=== PATIENT | female | born 1970 | race Caucasian/White ===

== ENCOUNTER → 2017-02-03 | Outpatient (CLI) | payer BC ==
[~2017-02-03] MED LIST: EFF75 PO; GABA-113 PO; PANT1TAB48 PO; PANT40TA PO; RXC5 PO
--- NOTE | 2017-02-03 15:05 | DIAGNOSTIC IMAGING REPORT ---
MRI CERVICAL WITHOUT CONTRAST CLINICAL HISTORY: CERVICAL RADICULITIS TECHNIQUE: Sagittal and axial T1, T2 and STIR images were obtained. COMPARISON STUDY: No previous studies for comparison. There are no suspicious areas of marrow replacement. No intrinsic cervical cord lesions are visualized. C2-3: There is no evidence of disc bulge or focal herniation. There is no spinal or foraminal stenosis. C3-4: There is no evidence of disc bulge or focal herniation. There is no spinal or foraminal stenosis. C4-5: There are no disc bulges or focal herniations. There is no spinal or foraminal stenosis. C5-6 :There is a circumferential disc bulge present. There is posterior lateral osteophytic spurring. There is mild spinal canal narrowing. There is no significant foraminal narrowing. C6-7: There is a circumferential disc bulge present. There is no significant spinal canal narrowing. There is minor left-sided foraminal narrowing C7-T1: There is no evidence of disc bulge or focal herniation. There is no evidence of spinal or foraminal stenosis. There are bilateral perineural cysts. There is a 24 mm left lobe thyroid nodule. IMPRESSION: 1. No intrinsic cord lesions identified 2. Disc bulge at the C5-6 and C6-7 levels. Mild spinal canal narrowing at the C5-6 level. 3. 24 mm left lobe thyroid nodule. Dedicated thyroid ultrasound is recommended in follow-up Electronically signed by: Itz Pedraza M.D. 02/03/2017 3:03 PM Dictated Date/Time: 02/03/2017 2:59 PM
== END | disposition home or self-care (01) ==
LOC: C.MRIBC 13:43
PROVIDERS: ATTEND Pain Medicine Interventional Pain Medicine
DX: M54.12 Radiculopathy, cervical region (principal)

== ENCOUNTER 2017-04-03 06:01 | Inpatient (IN) | payer BC ==
[2017-03-19 11:27] VITALS: BMI 28.0
[2017-03-23 17:19] LABS: BASO % 0.2 %; BASO ABS # 0.02 K/uL (0-0.2); COMPLETE YES; EOS % 0.8 %; IG% 0.3 %; LYMPH % 28.1 %; LYMPH ABS # 2.68 K/uL (1.2-3.4); MEAN CELL VOLUME 88.8 fL (80-100); MEAN CORPUSCULAR HEMOGLOBIN 29.2 pg (25-34); MEAN CORPUSCULAR HGB CONC 32.8 g/dl (32-36); MEAN PLATELET VOLUME 10.7 fL (7.4-10.4); MONO % 10.6 %; PLATELET COUNT 291 K/uL (130-400); RED BLOOD COUNT 4.39 M/uL (4.2-5.4); WHITE BLOOD COUNT 9.54 K/uL (4.8-10.8)
--- NOTE | 2017-03-23 17:23 | DIAGNOSTIC IMAGING REPORT ---
TWO VIEW CHEST CLINICAL HISTORY: Preoperative examination. FINDINGS: PA and lateral chest radiographs are compared to study dated 01/26/2016. The cardiomediastinal silhouette is unremarkable. The lungs and pleural spaces are clear. There is no pneumothorax. The bony thorax appears intact. IMPRESSION: No active disease in the chest. Electronically signed by: Keith Hu M.D. 03/23/2017 5:22 PM Dictated Date/Time: 03/23/2017 5:21 PM
[2017-03-23 17:44] LABS: BUN/CREATININE RATIO 25.1 (10-20); CALCIUM 9.1 mg/dl (8.5-10.1); CREATININE 0.74 mg/dl (0.60-1.20); POTASSIUM 3.8 mmol/L (3.5-5.1)
[2017-03-23 19:18] LABS: URINE APPEARANCE CLEAR (CLEAR); URINE BILIRUBIN NEG (NEG); URINE COLOR YELLOW; URINE EPITHELIAL CELL AUTO >30 /lpf (0-5); URINE NITRITE NEG (NEG); URINE SPECIFIC GRAVITY 1.013 (1.000-1.030); UROBILINOGEN NEG (NEG)
[2017-03-23 19:20] LABS: MANUAL MICROSCOPIC REQUIRED? NO; REVIEW REQ? NO
[2017-04-03] VITALS (16 sets, daily range): BP systolic 109–132; BP diastolic 74–91; PULSE 67–102; TEMP 36.4–36.9; O2SAT 94–98; Ht 170.2 cm; Wt 82.7 kg
[~2017-04-03] VITALS: Ht 170.2 cm; Wt 82.7 kg
[~2017-04-03 06:01] MED LIST changes: +CEFAZOLIN 2000 MG/60 ML D5W IV SCH; -EFF75 PO; +LACTATED RINGER'S 1000ML 1,000 ML IV SCH; -PANT40TA PO; -RXC5 PO
[2017-04-03] MEDS ORDERED: MIDAZOLAM HCL 1 MG/ML 2ML VIAL ONE (06:38)
[2017-04-03] MEDS ORDERED: FENTANYL CITRATE INJ 50 MCG/1 ML 2 ML VIAL ONE ×3 (06:38→08:45)
[2017-04-03] MEDS ORDERED: SODIUM CHLORIDE 0.9% PF 50 ML VIAL ONE (06:56)
[2017-04-03] MEDS ORDERED: BACITRACIN 50000 UNIT VIAL ONE (06:56)
--- NOTE | 2017-04-03 07:15 | History & Physical Bridge Note ---
H&P Re-Evaluation Bridge Note: I have examined the patient, reviewed the History & Physical and in the interval since the performance of the History & Physical I have noted the following changes of clinical significance: No changes noted
--- NOTE | 2017-04-03 07:15 | History and Physical ---
History & Physical Date April 03, 2017. Chief Complaint neck and arm pain History of Present Illness The patient is a 47 year old female with complaints of Past Medical/Surgical History Medical Problems: (1) Chest pain Surgical Problems: (1) History of hysterectomy Additional History Hepatic Disease: No Endocrine Disorder: No Kidney Disease: No Hypertension: No Heart Disease: No Bleeding Tendencies: No Infectious Diseases: No Allergies Coded Allergies: Sulfa Antibiotics (Verified Allergy, Severe, anaphylaxis, 04/03/17) Home Medications Scheduled Gabapentin (Neurontin), 300 MG PO UD Gabapentin (Neurontin), 2 TAB PO HS Pantoprazole (Protonix), 40 MG PO HS Physical Examination Skin: warm/dry, no rash Eyes: normal inspection, EOMI, sclerae normal ENT: normal ENT inspection, pharynx normal Head: normocephalic, atraumatic Neck: supple, no adenopathy, trachea midline Respiratory/Chest: lungs clear, normal breath sounds, no respiratory distress Cardiovascular: regular rate, rhythm, no edema, no murmur Abdomen / GI: normal bowel sounds, non tender Back: normal inspection Extremities: normal inspection, normal range of motion Neurologic/Psych: no motor/sensory deficits, alert, normal reflexes, oriented x 3 Diagnosis cervical stenosis Plan of Treatment acdf C5-6 C6-7
[2017-04-03] MEDS ORDERED: HYDROmorphone INJ 2 MG/ML SYR/VIAL ONE ×2 (07:56→09:12)
[2017-04-03] MEDS ORDERED: PROPOFOL IV EMULSION 10 MG/ML 20 ML VIAL IV ONE (08:16)
[2017-04-03] MEDS ORDERED: LIDOCAINE HCL 2% 2 ML VIAL (20MG/ML) ONE (08:16)
[2017-04-03] MEDS ORDERED: ROCURONIUM BROMIDE 10 MG/ML 5 ML VIAL ONE (08:16)
[2017-04-03] MEDS ORDERED: ONDANSETRON INJ 2 MG/ML 2 ML VIAL ONE ×2 (08:16→09:16)
[2017-04-03] MEDS ORDERED: DEXAMETHASONE SOD INJ 4 MG/ML VIAL ONE (08:16)
[2017-04-03] MEDS ORDERED: ATROPINE SULFATE 0.1 MG/ML 5ML SYR IV PRN (08:45)
[2017-04-03] MEDS ORDERED: PROMETHAZINE HCL INJ 12.5 MG in SODIUM CHLORIDE 0.9% 50ML 50 ML IV PRN (08:45)
[2017-04-03] MEDS ORDERED: LABETALOL HCL IV 5 MG/ML 20ML IV PRN (08:45)
[2017-04-03] MEDS ORDERED: ONDANSETRON INJ 2 MG/ML 2 ML VIAL IV PRN ×2 (08:45→09:15)
[2017-04-03] MEDS ORDERED: HYDROmorphone INJ 2 MG/ML SYR/VIAL IV PRN (08:45)
[2017-04-03] MEDS ORDERED: FLOSEAL HEMOSTATIC MATRIX 5ML TOP ONE (09:02)
--- NOTE | 2017-04-03 09:13 | [facility] Operative Report ---
Operative Report Operative Date April 03, 2017. Pre-Operative Diagnosis Cervical spinal stenosis Procedure(s) Performed acdf Surgeon DR. Rodrigo Farley Hot Top Liner Surgeon(s) Cuate Maria PA-C Estimated Blood Loss 20ml Findings stenosis Specimens none I attest to the content of the Intraoperative Record and any orders documented therein. Any exceptions are noted below.
[2017-04-03] MEDS ORDERED: LORAZEPAM 0.5 MG TAB PO PRN (09:15)
[2017-04-03] MEDS ORDERED: MAGNESIUM HYDROXIDE SUSP 30 ML UDC PO PRN (09:15)
[2017-04-03] MEDS ORDERED: RACEPINEPHRINE 2.25% NEBU SOLN 0.5 ML VIAL INH PRN (09:15)
[2017-04-03] MEDS ORDERED: NALOXONE HCL 0.4 MG/1 ML VIAL/CARP IV PRN (09:15)
[2017-04-03] MEDS ORDERED: LORAZEPAM INJ 0.5 MG in SYRINGE 0.75 ML IV PRN (09:15)
[2017-04-03] MEDS ORDERED: DEXAMETHASONE INJ 8 MG in SYRINGE 0 ML IV PRN (09:15)
[2017-04-03] MEDS ORDERED: DO NOT ADMINISTER FLU VACCINE PRN ×3 (09:15)
[2017-04-03] MEDS ORDERED: DiphenhydrAMINE HCL 50 MG/ML VIAL IV PRN (09:15)
[2017-04-03] MEDS ORDERED: DO NOT ADMINISTER PNEUMOCOCCAL VACCINE PRN ×2 (09:15)
[2017-04-03] MEDS ORDERED: ACETAMINOPHEN IV 1,000 MG in EMPTY BAG 0 ML IV PRN (09:15)
[2017-04-03] MEDS ORDERED: GLYCOPYRROLATE INJ 0.2 MG/ML VIAL ONE (09:16)
[2017-04-03] MEDS ORDERED: NEOSTIGMINE METHYLSULFATE 1 MG/ML 10ML VIAL ONE (09:16)
[2017-04-03] MEDS ORDERED: ESMOLOL HCL 10 MG/ML 10 ML VIAL ONE (09:30)
--- NOTE | 2017-04-03 09:50 | DIAGNOSTIC IMAGING REPORT ---
Cervical spine CERVICAL 2 OR 3 VIEWS CLINICAL HISTORY: ACDF C5-7 TECHNIQUE: Image intensifier COMPARISON STUDY: None FINDINGS: Image intensifier usage for a C5-C7 laminectomy and fusion IMPRESSION: C5-C7 laminectomy and fusion. Electronically signed by: Herminio Rider M.D. 04/03/2017 9:48 AM Dictated Date/Time: 04/03/2017 9:48 AM
--- NOTE | 2017-04-03 09:57 | OPERATIVE REPORT ---
DATE OF OPERATION: 04/03/2017 PREOPERATIVE DIAGNOSES: Cervical spondylosis, myeloradiculopathy. POSTOPERATIVE DIAGNOSIS: Same. PROCEDURE PERFORMED: 1. Anterior cervical discectomy, bilateral foraminotomy C5-C6 and C6-C7. 2. Anterior cervical arthrodesis, C5-C6 and C6-C7. 3. Placement of cortical autograft filled with DBM 7 mm in height at C5-C6, 8 mm in height at C6-C7. 4. Application of Rodriguez plate and screws from C5 to C7. SURGEON: Dr. Rodrigo Farley. SPORTS EQUIPMENT REPAIRER: Gilberto Maria PA-C. Due to the complex nature of the procedure, the entire surgery was performed with the processing assistant of Gilberto Maria PA-C. The graphic design assistant, under direct supervision, was involved in the actual performance of all aspects of the surgical procedure including hemostasis, tissue retraction and incision, instrument management, patient positioning, and wound closure. ANESTHESIA: General. DISPOSITION: The patient awakened and taken to PACU in stable condition. HISTORY OF PATIENT'S PROBLEMS: This is a 47-year-old female who presents with above-mentioned diagnosis. After failing an extensive course of nonoperative care, elected to undergo the above-mentioned procedure. Risks, benefits, pros, cons, and alternatives were outlined in detail preoperatively. OPERATION AND FINDINGS: PROCEDURE: The patient was met with preoperatively, case discussed and all questions were addressed. At that point the patient was taken back to operative suite and after undergoing successful general intubation by the department of anesthesia was placed in supine position on Brian table with head in Jackson head animal trainer. All bony prominences were well padded and the eyes were inspected to ensure there was no external pressure placed upon them. At this point the anterior cervical spine was prepped and draped in normal sterile fashion. With the assistance of fluoroscopy, we identified the C5-6, C6-7 disc space and transverse incision was placed overlying this region. Sharp dissection with the assistance of bipolar electrocautery performed down to and exposing anterior cervical spine from C5-C7. A retractor was placed. I then performed a complete discectomy of C5-C6 out to the uncovertebral joints bilaterally. This included removal of all posterior annular fibers and longitudinal ligament for bilateral foraminotomies. Coolidge distracting pins were utilized to assist us in our visualization. Endplates were then burred to subcortical bleeding bone and a 7 mm cortical allograft filled with DBM tapped in position. Distracting apparatus was removed and we proceeded to C6-C7. Again, complete discectomy was performed out to the uncovertebral joints bilaterally. Coolidge distracting pins were utilized to assist us in our visualization. I did removal all posterior annular fibers, longitudinal ligament and bilateral foraminotomies performed, endplates burred to subcortical bleeding bone and an 8 mm cortical autograft filled with DBM tapped in position. Anterior osteophytes were then burred to a smooth cortical surface and a Rodriguez plate and screws applied with the assistance of fluoroscopy. The incision was then copiously irrigated, explored to ensure there was no damage to surrounding structures or remaining bleeding. A 10 round DIOGO drain inserted then closed with 2-0 Vicryl in the fascia, 4-0 Monocryl for final skin closure. Steri-Strips and sterile dressing placed. The patient was awakened and taken to PACU in stable condition. I attest to the content of the Intraoperative Record and any orders documented therein. Any exceptio ns are noted below.
[2017-04-03] MEDS: HYDROmorphone INJ 1 MG/ML SYR ONE ×2 (10:23→10:25)
--- NOTE | 2017-04-03 10:41 | Anesthesiology Progress Note ---
Anesthesia Post Op Note Date & Time April 03, 2017 at 10:42 Vital Signs Vital Signs Past 12 Hours Date Time Temp Pulse Resp B/P Pulse Ox O2 Delivery O2 Flow Rate FiO2 04/03/17 10:30 36.7 73 20 136/91 97 Nasal Cannula 2 04/03/17 10:20 36.7 72 20 143/97 99 Nasal Cannula 2 04/03/17 10:10 36.7 76 18 127/94 98 Nasal Cannula 2 04/03/17 10:00 68 18 130/81 97 Nasal Cannula 2 04/03/17 09:50 83 18 136/88 97 Nasal Cannula 2 04/03/17 09:40 76 18 129/81 97 Mask 10 04/03/17 09:30 83 16 119/74 98 Mask 10 04/03/17 09:24 36.6 86 16 124/72 97 Mask 10 04/03/17 06:24 36.8 82 18 126/81 96 Room Air Notes Mental Status: alert / awake / arousable, participated in evaluation Pt Amnestic to Procedure: Yes Nausea / Vomiting: adequately controlled Pain: adequately controlled Airway Patency, RR, SpO2: stable & adequate BP & HR: stable & adequate Hydration State: stable & adequate Anesthetic Complications: no major complications apparent
[2017-04-03] MEDS ORDERED: HYDROmorphone INJ 1 MG/ML SYR ONE (10:42)
[2017-04-03] MEDS: SODIUM CHLORIDE 0.9% 1000ML 1,000 ML IV SCH ×2 (12:32→23:20)
[2017-04-03] MEDS ORDERED: SCOPOLAMINE 1.5 MG TDSY TD SCH (13:00)
[2017-04-03] MEDS: OXYCODONE HCL IR 5 MG TAB (IMMEDIATE RELEASE) PO PRN (13:16)
[2017-04-03] MEDS: HYDROmorphone INJ 1 MG/ML SYR IV PRN ×3 (14:19→20:41)
[2017-04-03] MEDS ORDERED: RXC5 PO (14:59)
--- NOTE | 2017-04-03 15:00 | Discharge Instructions ---
Discharge Instructions Date of Service April 03, 2017. Admission Reason for Admission: Cervical Spinal Stenosis Discharge Discharge Diagnosis / Problem: stenosis Discharge Goals Goal(s): Improve function Activity Recommendations Activity Limitations: per Instructions/Follow-up section . Instructions / Follow-Up Instructions / Follow-Up ACTIVITY RECOMMENDATIONS: SELF CARE INSTRUCTIONS AFTER CERVICAL FUSIONS 1. No smoking. Smoking drastically decreases the chance of a solid fusion. 2. No bending, lifting more than 5 pounds, or twisting (roll like a log when turning in bed). 3. You may shower 3 days after surgery. Thoroughly dry wound. Do not soak in the tub. 4. Cervical collar: Must be worn at all times including sleeping. You may remove the brace only to bath, eat and if you are sitting in a recliner. 5. Please walk as much as you can for exercise. Gradually increase the distance that you walk as your endurance increases. SPECIAL CARE INSTRUCTIONS: VERY IMPORTANT TO READ AND REVIEW A. Do not take any anti-inflammatory medications (i.e. Indocin, Advil, Aspirin, Naprosyn, Aleve, Motrin, etc.) as these may inhibit the chance of a solid fusion. Tylenol is okay to take. B. Your surgical incision has been closed with a cosmetic suture under the skin that will dissolve in about 6 weeks. In 14 days, you can use a pair of clean scissors and cut the suture that is left outside of the skin at the ends of your incision. C. Complications are uncommon, but please contact us if you have any signs or symptoms of: 1. wound infection (fever higher than 102.5 degrees F, redness, separation of wound, drainage, or increasing pain from the incision) 2. blood clots in legs (pain, swelling, redness and warmth in legs) 3. urinary tract infection (fever higher than 102.5 degrees, burning upon urination or increased frequency of urination) 4. nerve problems (inability to walk on your toes or heels, numbness, loss of bowel or bladder control) 5. any other symptoms that concern you. D. Please call the office at if you have any concerns or questions about your operation or recovery. MANAGING PAIN AFTER SPINAL SURGERY 1. Narcotic medication is intended for short-term use and will be provided for surgical pain. Surgical pain usually lasts for a period of 4-6 weeks. Narcotic medication includes Percocet, Vicodin, Darvocet, Tylenol #3 or Lortab. 2. Longer-term pain is more appropriately treated with non-narcotic medication such as Tylenol ES. 3. Muscle spasm is not appropriately treated with narcotics. Muscle relaxers such as Soma, Flexeril or Skelaxin can be used along with Tylenol ES. 4. Remember that we all live with some "aches and pains". This is not unusual or uncommon after an injury or as we get older. 5. We will provide appropriate medication within the normal guidelines of their prescribed use. We will also be very cautious and aware of potential abuse and extended duration of patients' medication needs. 6. Please allow 2-3 days to process refills. Prescriptions will not be mailed but must be picked up at the office. FOLLOW UP VISIT: Keep your scheduled follow-up appointment. Any questions, please call the office at . Current Hospital Diet Patient's current hospital diet: Clear Liquid Diet Discharge Diet Recommended Diet: Regular Diet Procedures Procedures Performed: C5-C6, C6-C7 Anterior Cervical Discectomy and Fusion, Removal of Intervertebral Disc/Decompression, Placement Allograft, Anterior Plate and Screw Fixation Pending Studies Studies pending at discharge: no Medical Emergencies . Who to Call and When: Medical Emergencies: If at any time you feel your situation is an emergency, please call 911 immediately. . Non-Emergent Contact Non-Emergency issues call your: Primary Care Provider . "Provider Documentation" section prepared by Rodrigo Farley. . VTE Core Measure Inpt VTE Proph given/why not?: Atiya Villanueva, SCD's
[2017-04-03] MEDS: CHECK SCOPOLAMINE PATCH PLACEMENT SCH ×2 (16:15→23:21)
[2017-04-03] MEDS: CEFAZOLIN IV 2,000 MG in DEXTROSE 5% 50ML 50 ML IV SCH ×2 (16:22→23:18)
[2017-04-03] MEDS: DEXAMETHASONE INJ 6 MG in SYRINGE 0 ML IV SCH (20:42)
[2017-04-03] MEDS: DOCUSATE SODIUM 100 MG CAP PO SCH (20:42)
[2017-04-03] MEDS ORDERED: GABAPENTIN 300 MG CAP PO SCH (21:00)
[2017-04-04] VITALS (11 sets, daily range): BP systolic 100–123; BP diastolic 65–81; PULSE 80–91; TEMP 36.5–36.7; O2SAT 92–96
[2017-04-04] MEDS: OXYCODONE HCL IR 5 MG TAB (IMMEDIATE RELEASE) PO PRN ×3 (01:19→10:52)
[2017-04-04] MEDS ORDERED: COUGH DROP (SUGAR FREE) LOZ 24 LOZ/1 BOX ONE (01:22)
[2017-04-04] MEDS ORDERED: NURSING DECISION MEDICATION ORDER SCH (01:30)
[2017-04-04] MEDS ORDERED: COUGH DROP (SUGAR FREE) LOZ 24 LOZ/1 BOX PO PRN (03:00)
[2017-04-04] MEDS: DEXAMETHASONE INJ 6 MG in SYRINGE 0 ML IV SCH ×2 (04:00→12:48)
[2017-04-04] MEDS: CHECK SCOPOLAMINE PATCH PLACEMENT SCH (08:17)
[2017-04-04] MEDS: CEFAZOLIN IV 2,000 MG in DEXTROSE 5% 50ML 50 ML IV SCH (08:17)
[2017-04-04] MEDS: GABAPENTIN 300 MG CAP PO SCH ×2 (08:18→12:47)
[2017-04-04] MEDS: DOCUSATE SODIUM 100 MG CAP PO SCH (08:18)
--- NOTE | 2017-04-04 10:59 | DISCHARGE SUMMARY ---
DATE OF DISCHARGE: 04/04/2017. PRINCIPAL DIAGNOSIS: Cervical spondylosis. HOSPITAL COURSE FOLLOWS: On 04/03/2017 patient underwent anterior cervical discectomy and fusion, tolerated this well and taken to the orthopedic floor postoperatively. Postop day #1, swallowing well. No hoarseness. Arm symptoms improved. Subsequently discharged home. Discharge orders and instructions can be found on the chart for further review.
[2017-04-04] MEDS ORDERED: PANTOprazole SOD 40 MG TAB PO SCH (21:00)
[2017-04-05] MEDS ORDERED: BISACODYL 5 MG TABEC PO PRN (06:00)
[2017-04-05] MEDS ORDERED: BISACODYL 10 MG SUPP PR PRN (06:00)
[2017-04-05] MEDS ORDERED: POLYETHYLENE (MIRALAX) 17 GM PACK PO SCH (09:00)
== END 2017-04-04 13:42 | disposition home or self-care (01) | DRG 473 ==
LOC: ENRESERVTM → ENRESERVDT → C.ACU 06:01 → C.3E 07:20 → CMPBEDREQ 11:51
PROVIDERS: ADMIT Orthopaedic Surgery Orthopaedic Surgery of the Spine; ATTEND Orthopaedic Surgery Orthopaedic Surgery of the Spine
PROC: 0RG2070 Fusion of 2 or more Cervical Vertebral Joints with Autologous Tissue Substitute, Anterior Approach, Anterior Column, Open Approach (ICD-10-PCS; principal; 2017-04-03 07:45)
PROC: 0RT30ZZ Resection of Cervical Vertebral Disc, Open Approach (ICD-10-PCS; principal; 2017-04-03 07:45)
DX: M48.02 Spinal stenosis, cervical region (principal); M47.22 Other spondylosis with radiculopathy, cervical region; Z79.899 Other long term (current) drug therapy